=== PATIENT | female | born 1995 | race Hispanic/Latino ===

== ENCOUNTER 2023-07-17 23:17 | Day surgery (SDC) | payer OTHER ==
[2023-07-17 23:49] VITALS: BMI 34.9
[2023-07-18] MEDS ORDERED: hydrALAZINE 20 MG/ML VIAL SLOW IVP PRN (00:06)
== END 2023-07-18 00:20 | disposition home or self-care (01) ==
LOC: CSHLD/OP 23:17
PROVIDERS: ATTEND Obstetrics & Gynecology
DX: O99.891 Other specified diseases and conditions complicating pregnancy (principal); R10.30 Lower abdominal pain, unspecified; O99.012 Anemia complicating pregnancy, second trimester; D64.9 Anemia, unspecified; Z3A.22 22 weeks gestation of pregnancy; W19.XXXA Unspecified fall, initial encounter